=== PATIENT | female | born 1955 | race Caucasian/White ===

== ENCOUNTER 2024-09-02 10:49 | Day surgery (SDC) | payer OTHER, SELFPAY ==
[2024-08-23 12:33] VITALS: BMI 27.3
[2024-09-02 11:09] VITALS: BP 156/71; PULSE 72; RESP 16; TEMP 36.4; O2SAT 98; BMI 27.3
[2024-09-02] MEDS: ACETAMINOPHEN 325 MG TABLET 975 MG PO (12:00)
[2024-09-02] MEDS: LACTATED RINGERS 1,000 ML 42 ML IV (12:01)
--- NOTE | 2024-09-02 12:28 | PM.PREOP ---
Pre-operative Note Interval Note History & Physical reviewed/Exam performed by Physician: Yes Changes to H&P: No
[2024-09-02] MEDS: CEFAZOLIN 2 GM/100 ML PREMIX 100 ML IV (12:47)
[2024-09-02 12:52] VITALS: BP 132/70; PULSE 75; RESP 20; O2SAT 97
--- NOTE | 2024-09-02 13:20 | SUR.OPER ---
Supine on padded OR bed, head on pillow, arms secured on padded arm boards at <90 degrees abduction, legs uncrossed, safety belt at thigh, tape over blanket over lower non operative leg.
[2024-09-02] MEDS: BUPIVACAINE 0.5% (PF) 30 ML VIAL INJ (13:27)
[2024-09-02 14:42] VITALS: BP 134/74; PULSE 86; RESP 18; TEMP 36.3; O2SAT 97
[2024-09-02 14:52] VITALS: BP 121/73; PULSE 82; RESP 16; O2SAT 97
[2024-09-02 14:57] VITALS: BP 136/72; PULSE 72; RESP 16; TEMP 36.1; O2SAT 97
[2024-09-02] MEDS: HYDROCODONE/ACET 5/325 TABLET 1 TAB PO (15:02)
[2024-09-02] MEDS: ONDANSETRON 4 MG/2 ML INJ IV (15:03)
[2024-09-02 15:07] VITALS: BP 133/69; PULSE 73; RESP 16; TEMP 36.2; O2SAT 99
--- NOTE | 2024-09-02 15:28 | P.OP_ITS ---
Operative Date/Time/Diagnoses Date of procedure: 09/02/24 Time of procedure: 15:28 Pre-op diagnosis: Right foot painful arthritis Post-op diagnosis: same Procedure & Clinicians Procedure: Right dorsal exostectomy of naviculocuneiform and first tarsometatarsal joints. Same procedure as scheduled: No (The talonavicular joint was evaluated, no bone work at [facility] Indications: 61-year-old female with painful arthritis to right foot. Conservative measures have failed to alleviate pain and she wished to have surgical intervention at this time. We spoke of the risks and potential complications as well as expected outcomes and alternatives. Consent was signed, there were no contraindications to the procedure at this time. Surgeon: Tamra Contreras Click Yes if Unassisted: Yes Anesthesia Type: General Operative Notes Closure Type: primary Specimen(s): none sent Estimated Blood Loss (mL): 20 Blood products transfused: none Procedure in detail: The patient was brought to the operating room and placed on the operating table in the supine position. The tourniquet was placed about the right ankle. Well- padded, appropriately aligned. After induction of anesthesia the right foot and ankle were prepped and draped in the usual aseptic manner. The tourniquet was inflated. Incision was made over the dorsomedial foot over the area she felt it was most uncomfortable. This was over the medial naviculocunieform joint. The incision was deepened through subcutaneous tissues being careful to identify and retract all vital neurovascular structures. All bleeders were cauterized and ligated as necessary. The joint was entered and this showed degenerative changes with some bossing at the edges of the dorsal joint. This was able to be reduced using a mixture of osteotomes, rongeur, currette, and then manual rasp. I then extended the incision proximally to the talonavicular joint but this did not show a significant amount of arthritic change or spurring. The foot was placed into loading on the ankle and checked under mini C-arm and did not find this area to have prominent spurring or changes that needed to reduce any of the edges of the joint. Next, her other area of pain had been marked distally and the incision was extended to the 1st metatarsocuneiform joint which was entered. The joint was noted to have dorsal moderate bony bossing and cartilage reduction at the dorsal aspect. This was also reduced in that area with osteotome, rongeur, and manual rasp. This was also checked under mini C-arm. The areas were irrigated with normal saline. Tourniquet was deflated and a prompt hyperemic response was seen to the foot. Subcutaneous closure was performed using Vicryl and nylon was used to close the skin. A sterile lightly compressive dressing was placed on the foot and foot was placed in a postoperative boot. She was transferred to the PACU with vital signs stable and vascular status intact. Complications: none Post-operative Condition: stable Disposition: PACU Plan for aftercare: Following a period of postoperative monitoring, the patient will be discharged to home on written and oral postoperative instructions including keeping the dressing dry and intact, no greater than 50% weight to the surgical foot, icing and elevating the foot when seated home. DVT prevention techniques have been reviewed. For the 1st postoperative visit the dressing will be changed and close to the 3rd postoperative week we will likely remove the sutures.
== END 2024-09-02 15:21 | disposition home or self-care (01) ==
PROVIDERS: Family Provider Family Medicine; PCP Family Medicine; Referring Provider Podiatrist; Visit Provider Podiatrist
PROC: (CPT 28122; principal; 2024-09-02 12:15)
DX: M19.071 Primary osteoarthritis, right ankle and foot (principal); Z87.891 Personal history of nicotine dependence
CPT/HCPCS: 28122 ×2; J0690; J2405; J2704; J3010